=== PATIENT | male | born 1990 | race Caucasian/White ===

== ENCOUNTER 2019-03-18 00:07 | Emergency (ER) | payer MEDICAID ==
[~2019-03-18] VITALS: Ht 177.8 cm; Wt 78.0 kg
[2019-03-18 01:57] VITALS: BP 133/79
[2019-03-18] MEDS ORDERED: IBUPROFEN 600MG TABLET PO ONE (02:00)
== END 2019-03-18 01:58 | disposition home or self-care (01) ==
LOC: ER 00:07
DX: J11.1 Influenza due to unidentified influenza virus with other respiratory manifestations (principal)
CPT/HCPCS: 87804; 99283

== ENCOUNTER 2019-04-16 21:50 | Emergency (ER) | payer MEDICAID ==
[~2019-04-16] VITALS: Ht 170.2 cm; Wt 78.0 kg
[2019-04-16 22:18] VITALS: BP 153/99
[2019-04-17] MEDS ORDERED: LIDOCAINE HCL/PF 1% 10 MG/ML 5ML VIAL IJ ONE (03:30)
[2019-04-17] MEDS ORDERED: TETANUS, DIPHTHERIA, PERTUSSIS VAC/PF 0.5ML (>7YR OLD) IM ONE (03:30)
[2019-04-17] MEDS ORDERED: ACETAMINOPHEN 325MG TABLET PO ONE (03:30)
[2019-04-17] MEDS ORDERED: BACITRACIN ZINC OINT UDPKT TOP ONE (03:30)
== END 2019-04-17 05:02 | disposition home or self-care (01) ==
LOC: ER 21:58
DX: S81.811A Laceration without foreign body, right lower leg, initial encounter (principal); X58.XXXA Exposure to other specified factors, initial encounter; Y93.89 Activity, other specified; Y92.89 Other specified places as the place of occurrence of the external cause; Y99.8 Other external cause status
CPT/HCPCS: 12002; 90471; 90715; 99283; J3490; 12001

== ENCOUNTER → 2021-06-03 | Emergency (ER) | payer MEDICAID ==
[~2021-06-03] VITALS: Ht 170.2 cm; Wt 82.0 kg
[2021-06-03 08:59] VITALS: BP 142/84
== END | disposition left against medical advice (07) ==
LOC: ER 08:51
DX: M25.521 Pain in right elbow (principal)
CPT/HCPCS: 99281